=== PATIENT | male | born 1995 | race Caucasian/White ===

== ENCOUNTER 2016-11-17 03:34 | Emergency (ER) | payer SELFPAY ==
[2016-11-17 03:46] VITALS: BP 141/91; PULSE 98; RESP 16; TEMP 98.3; O2SAT 97
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
== END 2016-11-17 04:00 | disposition left against medical advice (07) ==
LOC: C.ER 03:34
DX: S01.511A Laceration without foreign body of lip, initial encounter (principal); Y04.0XXA Assault by unarmed brawl or fight, initial encounter

== ENCOUNTER 2017-04-25 03:31 | Emergency (ER) | payer SELFPAY ==
[2017-04-25] MEDS ORDERED: Sodium Chloride 0.9% 250 ML IV ONE (04:19)
[2017-04-25] MEDS ORDERED: Aluminum Hydroxide/Magnesium Hydroxide Susp (30 mL) ONE (04:19)
[2017-04-25] MEDS: Sodium Chloride 0.9% 1,000 ML IV ONE (04:27)
[2017-04-25 04:35] LABS: BASO # 0.1 K/uL (0.0-0.2); BASO % 0.9 % (0.0-2.0); EOS # 0.1 K/uL (0.0-0.7); EOS % 1.1 % (0.0-4.0); HEMATOCRIT 40.8 % (35.0-51.0); LYMPH # 1.9 K/uL (1.0-4.3); LYMPH % 20.3 % (20.0-40.0); MEAN CELL VOLUME 91.4 fL (80.0-94.0); MEAN CORPUSCULAR HEMOGLOBIN 31.6 pg (27.0-31.0); MEAN CORPUSCULAR HGB CONC 34.6 g/dL (33.0-37.0); MEAN PLATELET VOLUME 8.6 fL (7.2-11.7); MONO # 0.7 K/uL (0.0-0.8); MONO % 7.9 % (0.0-10.0); RED CELL DISTRIBUTION WIDTH 12.5 % (11.5-14.5); WHITE BLOOD COUNT 9.2 K/uL (4.8-10.8)
[2017-04-25 04:37] LABS: URINE BILIRUBIN NEGATIVE (NEGATIVE); URINE BLOOD NEGATIVE (NEGATIVE); URINE COLOR Straw (YELLOW); URINE GLUCOSE (UA) NORMAL (Normal); URINE KETONE TRACE mg/dL (NEGATIVE); URINE LEUKOCYTE ESTERASE NEG Leu/uL (Negative); URINE PROTEIN NEGATIVE (NEGATIVE); URINE UROBILINOGEN NORMAL mg/dL (0.2-1.0); WBC URINE 1 /hpf (0-5)
[2017-04-25 04:38] LABS: CHLORIDE 99 mmol/L (98-107)
[2017-04-25 04:39] LABS: SODIUM 133 mmol/L (132-148)
[2017-04-25 04:41] LABS: ALB/GLOB RATIO 1.5 (1.0-2.1); ALKALINE PHOSPHATASE 57 U/L (38-126); AST/SGOT 102 U/L (17-59); CARBON DIOXIDE 22 mmol/L (22-30); GFR AFRICAN-AMERICAN > 60; TOTAL PROTEIN 7.3 g/dL (6.3-8.3)
[2017-04-25 04:42] LABS: ALT/SGPT 62 U/L (21-72); BLOOD UREA NITROGEN 24 mg/dL (9-20); CALCIUM 8.8 mg/dl (8.6-10.4); GLUCOSE,RANDOM 72 mg/dL (75-110)
[2017-04-25] MEDS: Aluminum Hydroxide/Magnesium Hydroxide Susp (30 mL) PO STA (04:48)
--- NOTE | 2017-04-25 05:21 | C.PDOC ---
History Of Present Illness Patient is a 21 y/o male who presents to the ED with a complaint of intermittent abdominal pain that began three hours ago. Patient denies nausea, vomiting, fever, or diarrhea. Patient denies any other physical complaints at this time. Time Seen by Provider: 04/25/17 04:07 Chief Complaint (Nursing): Abdominal Pain History Per: Patient History/Exam Limitations: no limitations Onset/Duration Of Symptoms: Days (3 days) Current Symptoms Are (Timing): Still Present Location Of Pain/Discomfort: Diffuse Associated Symptoms: denies: Fever, Nausea, Vomiting, Diarrhea Past Medical History Reviewed: Historical Data, Nursing Documentation, Vital Signs Vital Signs: Last Vital Signs Temp 97.5 F L 04/25/17 05:44 Pulse 75 04/25/17 05:44 Resp 18 04/25/17 05:44 BP 113/73 04/25/17 05:44 Pulse Ox 98 04/25/17 05:53 - Medical History PMH: No Chronic Diseases Surgical History: No Surg Hx Family History: States: No Known Family Hx - Social History Hx Alcohol Use: Yes Hx Substance Use: No - Immunization History Hx Tetanus Toxoid Vaccination: No Hx Influenza Vaccination: No Hx Pneumococcal Vaccination: No Review Of Systems Constitutional: Negative for: Fever Gastrointestinal: Positive for: Abdominal Pain. Negative for: Nausea, Vomiting , Diarrhea Physical Exam - Physical Exam Appears: Well, Non-toxic, No Acute Distress Skin: Normal Color, Warm, Dry Head: Atraumatic, Normacephalic Eye(s): bilateral: Normal Inspection, EOMI Nose: Normal Oral Mucosa: Moist Neck: Normal ROM, Supple Chest: Symmetrical Cardiovascular: Rhythm Regular Respiratory: Normal Breath Sounds Gastrointestinal/Abdominal: Soft, No Tenderness, Other (epigastric pain on palpation) Neurological/Psych: Oriented x3, Normal Speech ED Course And Treatment - Laboratory Results Result Diagrams: 04/25/17 04:31 04/25/17 04:31 O2 Sat by Pulse Oximetry: 98 Progress Note: Plan: Maalox, Pepcid, and Zofran administered. On re-evaluation , Patient is resting comfortably, abdomen remains soft, and patient is tolerating PO. Patient feels comfortable going home. Patient will be discharged home. Disposition - Disposition Referrals: Non [facility] Provider, [Primary Care Provider] - Disposition: HOME/ ROUTINE Disposition Time: 05:21 Condition: STABLE Additional Instructions: Follow up with primary medical doctor in 1-3 days without fail for further evaluation. Take medications as prescribed. Return to the emergency department at any time if symptoms persist or worsen. Prescriptions: Calcium Carbonate/Simethicone [Maalox Advanced 1000 mg-60 mg] 1 ctb PO BID PRN # 14 ctb PRN Reason: Gi Distress Instructions: Acute Abdominal Pain (ED) Forms: [facility] (Swiss) - Clinical Impression Clinical Impression: Abdominal pain - Scribe Statement The provider has reviewed the documentation as recorded by the Scribe Rita Arora All medical record entries made by the Marisolibe were at my direction and personally dictated by me. I have reviewed the chart and agree that the record accurately reflects my personal performance of the history, physical exam, medical decision making, and the department course for this patient. I have also personally directed, reviewed, and agree with the discharge instructions and disposition.
[2017-04-25 05:45] VITALS: BP 113/73; PULSE 75; RESP 18; TEMP 97.5
[2017-04-25 05:51] VITALS: O2SAT 98
== END 2017-04-25 05:45 | disposition home or self-care (01) ==
LOC: C.ER 03:31 → SUPCPDRO 03:31 → C.ER 05:45
DX: R10.9 Unspecified abdominal pain (principal)
CPT/HCPCS: 80053; 81001; 83690; 85025; 96361; 96374; 96375; 99285; J2405; J7040